=== PATIENT | female | born 1995 | race Caucasian/White ===

== ENCOUNTER 2016-08-24 15:00 | Emergency (ER) | payer BC, OTHER ==
[~2016-08-24] VITALS: Ht 162.6 cm; Wt 67.9 kg
[2016-08-24 15:06] VITALS: TEMP 36.9; Ht 162.6 cm; Wt 67.9 kg
--- NOTE | 2016-08-24 16:01 | EMERGENCY ROOM VISIT NOTE ---
History First contact with patient: 15:52 Chief Complaint: RIB PAIN Stated Complaint: EXTREME PAIN IN LEFT RIB History of Present Illness The patient is a 21 year old female who presents to the Emergency Room with complaints of rib pain and shortness of breath. She reports she had flu-like symptoms last week, and went to [facility] and had a negative flu swab. She went home and took Mucinex, rested, and thought she was feeling better. She was then at home and noticed she had left sided chest pain. She was concerned she may have pleurisy. She feels she can reproduce the pain when pressing on her chest. She tried to make an appt with [facility] but it was busy. She reports the pain is a 6/10, non-radiating, and sharp. It is associated with a cough productive of white mucus. She is not on any control, has not had any long flights or trips, and has not had any leg swelling or previous PE/DVTs. Review of Systems See HPI for pertinent positives & negatives. A total of 10 systems reviewed and were otherwise negative. Past Medical/Surgical History No past medical or surgical hx Family History No FHx Social History Smoking Status: Current Some Day Smoker Current/Historical Medications Scheduled Sertraline (Zoloft), 100 MG PO DAILY Allergies Coded Allergies: No Known Allergies (Unverified , 08/24/16) Physical Exam Vital Signs Date Time Temp Pulse Resp B/P Pulse Ox O2 Delivery O2 Flow Rate FiO2 08/24/16 17:00 55 16 104/61 100 08/24/16 15:06 36.9 71 18 114/74 98 Room Air Physical Exam GENERAL: Awake, alert, well-appearing, in no acute distress HENT: Normocephalic, atraumatic. Oropharynx unremarkable. EYES: Normal conjunctiva. Sclera non-icteric. NECK: Supple. No nuchal rigidity. FROM. No JVD. RESPIRATORY: Clear to auscultation. CARDIAC: Regular rate, normal rhythm. Extremities warm and well perfused. Pulses equal. ABDOMEN: Soft, non-distended. No tenderness to palpation. No rebound or guarding. No masses. RECTAL: Deferred. MUSCULOSKELETAL: Chest examination reveals tenderness to palpation of LEFT costochondral angle. The back is symmetrical on inspection without obvious abnormality. There is no CVA tenderness to palpation. No joint edema. LOWER EXTREMITIES: Calves are equal size bilaterally and non-tender. No edema. No discoloration. NEURO: Normal sensorium. No sensory or motor deficits noted. SKIN: No rash or jaundice noted. Medical Decision & Procedures Medications Administered Medications (Trade) Dose Ordered Sig/Lyla Route Start Time Stop Time Status Last Admin Dose Admin Naproxen (Naprosyn Tab) 250 mg NOW STAT PO 08/24/16 16:05 08/24/16 16:06 DC 08/24/16 16:21 250 MG Procedure CHEST 2 VIEWS ROUTINE CLINICAL HISTORY: L rib pain pain COMPARISON STUDY: No previous studies for comparison. FINDINGS: The bones soft tissues and hemidiaphragms are normal. The cardiomediastinal silhouette is normal. The lungs are clear. The pulmonary vasculature is normal. IMPRESSION: Negative chest. ED Course 3:50: I evaluated the patient in room C1A. A complete history and physical were performed. 4:00: I discussed the case with my attending Dr Ordonez. Her PERC score was calculated at 0. A Chest XRay was ordered as was a dose of Naproxen. 4:53: I informed the patient her CXR was negative. She was reviewed by my attending Dr. Ordonez 5:00: The patient was discharged in good condition. Medical Decision 21 yo F with chest pain and reproducible wall tenderness after a viral URI - differential includes costochondritis, pleurisy, influenza, pneumonia, or PE. Her PERC score is zero so chance of PE is low. She had a CXR that was negative. She was given Naproxen which helped her pain. She was advised to continue taking anti-inflammatories to help her pain. She was discharged home in good conditon. Departure Information Referrals No Doctor, Assigned (PCP) Patient Instructions My [facility] Resident Tracking Resident Involvement: Resident Care Provided Care Provided: Adult ED
[2016-08-24] MEDS ORDERED: NAPROXEN 250 MG TAB PO STA (16:05)
[2016-08-24] MEDS ORDERED: SERT-234 PO (16:20)
--- NOTE | 2016-08-24 16:25 | EMERGENCY ROOM VISIT NOTE ---
ED Visit Note First contact with patient: 15:52 Resident Physician Supervision Note: I was present with Dr. Muniz during the history and exam. I discussed the case with the resident and agree with the findings and plan as documented in the note. Documented By: Holden Ordonez
--- NOTE | 2016-08-24 16:40 | DIAGNOSTIC IMAGING REPORT ---
CHEST 2 VIEWS ROUTINE CLINICAL HISTORY: L rib pain pain COMPARISON STUDY: No previous studies for comparison. FINDINGS: The bones soft tissues and hemidiaphragms are normal. The cardiomediastinal silhouette is normal. The lungs are clear. The pulmonary vasculature is normal. IMPRESSION: Negative chest. Electronically signed by: Daniel Frances M.D. 08/24/2016 4:38 PM Dictated Date/Time: 08/24/2016 4:38 PM
[2016-08-24 17:00] VITALS: BP 104/61; PULSE 55; O2SAT 100
== END 2016-08-24 17:20 | disposition home or self-care (01) ==
LOC: C.EDB 15:03 → C.EDC 17:20
DX: R07.81 Pleurodynia (principal); R06.02 Shortness of breath; F17.200 Nicotine dependence, unspecified, uncomplicated